=== PATIENT | male | born 1980 | race Caucasian/White ===

== ENCOUNTER 2018-04-21 19:29 | Emergency (ER) | payer SELFPAY ==
[~2018-04-21] VITALS: Ht 182.9 cm; Wt 91.4 kg
[~2018-04-21 19:29] MED LIST: CLARITIN-D1 TA1 OR; LORTAB 5 OR; SEPTRA OR; ULTRAM50 M1 PO; [UNRECOGNIZED DRUG - OTHER] OR
[2018-04-21 20:20] LABS: HEMATOCRIT 45.4 % (39.0-50.0); HEMOGLOBIN 15.8 g/dl (14.0-18.0); IMMATURE GRANULOCYTES 0.3 % (0.0-5.0); MEAN CELL VOLUME 85.2 fL CALC (80.0-100.0); MEAN CORPUSCULAR HGB 29.6 pG CALC (26.0-32.0); MEAN CORPUSCULAR HGB CONC 34.8 g/L CALC (32.0-36.0); NEUT# 4.17 thou/uL (1.82-7.42); RED BLOOD COUNT 5.33 mill/uL (4.70-6.10)
[2018-04-21] MEDS ORDERED: TESSALON PER100 MG PO (20:54)
[2018-04-21 21:00] VITALS: BP 109/77
== END 2018-04-21 21:00 | disposition home or self-care (01) | DRG 203 ==
LOC: ED 19:29
PROVIDERS: Family Medicine
DX: J20.8 Acute bronchitis due to other specified organisms (principal); R07.89 Other chest pain; R05 Cough; F17.200 Nicotine dependence, unspecified, uncomplicated; R42 Dizziness and giddiness

== ENCOUNTER 2019-10-01 17:12 | Emergency (ER) | payer SELFPAY ==
[~2019-10-01 17:12] MED LIST changes: +TESSALON PER100 MG PO
[2019-10-01] MEDS ORDERED: MULTI VIT PO (17:28)
[2019-10-01] MEDS ORDERED: CIPROFLOXACN500 MG PO (19:20)
[2019-10-01] MEDS ORDERED: BACTRIM DS1 TAB PO (19:20)
[2019-10-01 19:25] VITALS: BP 123/80
== END 2019-10-01 19:33 | disposition home or self-care (01) | DRG 914 ==
LOC: ED 17:12
DX: S91.341A Puncture wound with foreign body, right foot, initial encounter (principal); F17.210 Nicotine dependence, cigarettes, uncomplicated; W22.8XXA Striking against or struck by other objects, initial encounter; Y92.73 Farm field as the place of occurrence of the external cause

== ENCOUNTER 2020-06-28 19:20 | Emergency (ER) | payer BC ==
[~2020-06-28] VITALS: Ht 182.9 cm; Wt 102.0 kg
[~2020-06-28 19:20] MED LIST changes: +BACTRIM DS1 TAB PO; +CIPROFLOXACN500 MG PO; +MULTI VIT PO
[2020-06-28] MEDS ORDERED: BACTRIM DS1 TAB PO (20:42)
[2020-06-28 20:45] VITALS: BP 142/95
== END 2020-06-28 20:45 | disposition home or self-care (01) | DRG 603 ==
LOC: ED 19:20
PROC: 0X950ZZ Drainage of Left Axilla, Open Approach (ICD-10-PCS; principal; 2020-06-28)
DX: L02.412 Cutaneous abscess of left axilla (principal); F17.200 Nicotine dependence, unspecified, uncomplicated; Z86.14 Personal history of Methicillin resistant Staphylococcus aureus infection

== ENCOUNTER 2020-06-30 11:31 | Emergency (ER) | payer BC ==
[~2020-06-30] VITALS: Ht 182.9 cm; Wt 110.0 kg
[2020-06-30 12:26] VITALS: BP 138/82
== END 2020-06-30 12:26 | disposition home or self-care (01) | DRG 951 ==
LOC: ED 11:31
DX: Z48.01 Encounter for change or removal of surgical wound dressing (principal); F17.200 Nicotine dependence, unspecified, uncomplicated

== ENCOUNTER 2021-04-24 18:29 | Emergency (ER) | payer BC ==
[~2021-04-24] VITALS: Ht 182.9 cm; Wt 104.5 kg
[2021-04-24] MEDS ORDERED: FIORICET PO (20:10)
[2021-04-24] MEDS ORDERED: KEFLEX500 MG PO (20:10)
[2021-04-24] MEDS ORDERED: FLONASE AL50 MCG/ACT (20:10)
[2021-04-24 20:31] VITALS: BP 134/89
== END 2021-04-24 20:31 | disposition home or self-care (01) | DRG 153 ==
LOC: ED 18:29
DX: J32.9 Chronic sinusitis, unspecified (principal); F17.210 Nicotine dependence, cigarettes, uncomplicated; Z20.822 Contact with and (suspected) exposure to COVID-19